=== PATIENT | male | born 1985 | race Caucasian/White ===

== ENCOUNTER 2020-10-13 23:16 | Emergency (ER) | payer SELFPAY ==
[~2020-10-13] VITALS: Ht 180.3 cm; Wt 76.8 kg
[2020-10-13 23:16] VITALS: BP 126/78
--- NOTE | 2020-10-13 23:46 | PHYS DOC ---
Adult General Chief Complaint Chief Complaint: LACERATION/AVULSION HPI HPI Patient is a 35-year-old male who presents with a chief complaint of lacerations to the right hand after punching a mirror. States he was drinking, got mad and punched a mirror. Endorses a laceration of the proximal portion of his index finger, middle finger and back of the hand. Denies any other injuries. States he is not up-to-date on his tetanus vaccinations. Review of Systems Review of Systems Review of systems otherwise unremarkable except noted in HPI. Physical Exam Physical Exam Constitutional: Well developed, well nourished, no acute distress, non-toxic appearance. [] Skin: Warm, dry, no erythema, no rash. [] Extremities: Patient has superficial lacerations to the dorsal side of the proximal first digit in between the PIP and DIP, same on the third digit and a small laceration on the dorsum of the right hand just proximal to the PIP of the third digit. Neurologic: Alert and oriented X 3, normal motor function, normal sensory function, no focal deficits noted. [] Psychologic: Affect normal, judgement normal, mood normal. [] EKG EKG [] Radiology/Procedures Radiology/Procedures [] Heart Score Risk Factors: Risk Factors: DM, Current or recent (<one month) smoker, HTN, HLP, family history of CAD, obesity. Risk Scores: Risk Factors: DM, Current or recent (<one month) smoker, HTN, HLP, family history of CAD, obesity. Course & Med Decision Making Course & Med Decision Making Patient is a 35-year-old male who presents with lacerations to his digits after punching a mirror Vital signs not concerning. Physical exam noted above. Discussed wounds with patient and recommended a thorough cleaning/lavaging, probable x-ray to make sure no foreign bodies such as glass or stuck in his hand, a updated tetanus vaccination and inspection to see if suture was needed. Patient initially cooperative and stating that that was a decent plan. Approximately 5 to 10 minutes later patient got up, came to the nurses station and said he was leaving and did not need any medical attention. He was told that this was probably not the best course of action as he could need sutures, could have foreign bodies, and needed a tetanus update. Advised that without this work-up it is quite possible that he could at the very least incur an infection, have foreign bodies and is at risk of tetanus which could possibly in the long run disable him or in a serious circumstance cause a serious infection leading to significant morbidity or mortality. Patient shrugged, said he was leaving. [] Dragon Disclaimer Dragon Disclaimer This electronic medical record was generated, in whole or in part, using a voice recognition dictation system. Departure Departure: Impression: Primary Impression: Laceration Additional Impression: Multiple lacerations Disposition: 07 AMA/ELOPED/LWBS Condition: STABLE Problem Qualifiers AHMET POND MD Oct 13, 2020 23:46
== END 2020-10-13 23:40 | disposition left against medical advice (07) ==
LOC: ER 23:16
DX: S61.210A Laceration without foreign body of right index finger without damage to nail, initial encounter (principal); W25.XXXA Contact with sharp glass, initial encounter; Y93.89 Activity, other specified; Y92.89 Other specified places as the place of occurrence of the external cause; Y99.8 Other external cause status
CPT/HCPCS: 99282; 99283